=== PATIENT | female | born 1965 | race African-American/Black ===

== ENCOUNTER 2016-08-18 13:06 | Emergency (ER) | payer OTHER ==
[~2016-08-18] VITALS: Ht 175.3 cm; Wt 75.9 kg
[2016-08-18 13:12] VITALS: TEMP 98.7
[2016-08-18 14:23] LABS: BASO % 0.6 % (0.0-2.0); EOS # 0.1 (0.0-0.7); EOS % 0.7 % (0-4.0); GRAN # 4.2 (1.4-6.5); GRAN % 59.2 % (42.2-75.2); HEMATOCRIT 38.6 % (37.0-47.0); HEMOGLOBIN 12.5 g/dl (12.5-16.0); LYMPH # 2.4 (1.2-3.4); LYMPH % 33.8 % (20.0-51.0); MEAN CELL VOLUME 81 fl (80.0-100.0); MEAN CORPUSCULAR HEMOGLOBIN 26 pg (27.0-31.0); MEAN CORPUSCULAR HGB CONC 32 g/dl (33.0-37.0); MEAN PLATELET VOLUME 11.3 fl (7.4-10.4); MONO # 0.4 (0.1-0.6); MONO % 5.4 % (1.7-9.3); PH 6 (5-8); PLATELET COUNT 216 K/mm3 (130-400); RED BLOOD COUNT 4.77 M/mm3 (4.10-5.30); REDCELL DISTRIBUTION WIDTH-CV 12.2 % (11.5-14.5); URINE APPEARANCE Hazy; URINE BACTERIA Rare /hpf; URINE BILIRUBIN Negative (NEGATIVE); URINE BLOOD Negative (NEGATIVE); URINE COLOR Straw; URINE GLUCOSE 3+ (NEGATIVE); URINE KETONE Trace (NEGATIVE); URINE RBC 0-2 /hpf; URINE UROBILINOGEN Negative (NEGATIVE); URINE WBC 0-2 /hpf; WHITE BLOOD COUNT 7.1 K/mm3 (4.8-10.8)
[2016-08-18 14:33] LABS: ADJUSTED CALCIUM 9.7 mg/dL (8.4-10.2); ALBUMIN 4.3 gm/dL (3.5-5.0); BILIRUBIN,TOTAL 0.7 mg/dL (0.0-1.0); CALCIUM 9.9 mg/dL (8.4-10.2); CREATININE, serum 0.61 mg/dL (0.52-1.25); POTASSIUM 4.3 mmol/L (3.4-5.0); TOTAL PROTEIN 7.5 gm/dL (6.4-8.2)
[2016-08-18] MEDS ORDERED: GLUCOPHAGE500 MG/TAB PO (17:14)
[2016-08-18] MEDS ORDERED: NORVASC 10MG10 MG PO (17:14)
[2016-08-18 17:34] VITALS: BP 190/99; PULSE 78
== END 2016-08-18 17:35 | disposition home or self-care (01) ==
LOC: COL.ER 13:06
PROVIDERS: Emergency Medicine
DX: S39.012A Strain of muscle, fascia and tendon of lower back, initial encounter (principal); X50.0XXA Overexertion from strenuous movement or load, initial encounter; I10 Essential (primary) hypertension; E11.65 Type 2 diabetes mellitus with hyperglycemia
CPT/HCPCS: J1815; J1885; J2360; J2765; J3010; J7040

== ENCOUNTER 2016-12-31 09:45 | Outpatient (RCR) | payer OTHER ==
[~2016-12-31 09:45] MED LIST: GLUCOPHAGE500 MG/TAB PO; NORVASC 10MG10 MG PO
== END 2017-01-01 09:51 ==
LOC: WSPT 09:45
DX: M19.011 Primary osteoarthritis, right shoulder (principal); Z90.710 Acquired absence of both cervix and uterus; Z90.89 Acquired absence of other organs

== ENCOUNTER 2017-01-17 09:59 | Outpatient (RCR) | payer OTHER | END 2017-02-03 14:10 | disposition still patient (30) | LOC: WSOH 09:59 | DX: Z51.89 Encounter for other specified aftercare (principal); M19.011 Primary osteoarthritis, right shoulder ==